=== PATIENT | male | born 1965 ===

== ENCOUNTER 2024-09-06 09:53 | Outpatient (CLI) | payer OTHER, SELFPAY ==
--- NOTE | ~2024-09-06 | US_ITS ---
US abdomen complete EXAMINATION: US Abdomen Complete INDICATION: Iron overload PROCEDURE: Realtime High Resolution abdomen ultrasound. COMPARISON: No prior studies for comparison FINDINGS: There are gallbladder polyps. No definite gallstones, gallbladder wall thickening or perich olecystic fluid. Largest polyp measures 3 mm. Common bile duct measures 4 mm. Liver echotexture within normal limits without focal mass. Pancreas within normal limits. Pancreati c tail is obscured by bowel gas. Spleen is unremarkeable. Renal echotexture is within normal limits bilaterally without hydronephrosis, contour deforming mass or renal stone. Right kidney measures 8 cm . Left kidney measures 9.8 cm. Visualized aspects of the aorta and IVC are within normal limits. Portal vein is patent. No sonograph ic Hancock's sign indicated by the technologist. IMPRESSION: 1: Gallbladder polyps. Reviewed, dictated and finalized at location A. IMPRESSION: 1: Gallbladder polyps.
== END 2024-09-06 09:54 | disposition home or self-care (01) ==
LOC: MICIMG 09:53
PROVIDERS: PCP Internal Medicine Hematology & Oncology; Visit Provider Internal Medicine Hematology & Oncology
DX: E83.19 Other disorders of iron metabolism (principal); K82.4 Cholesterolosis of gallbladder
CPT/HCPCS: 76700

== ENCOUNTER 2024-09-15 09:36 | Outpatient (CLI) | payer OTHER, SELFPAY ==
[2024-09-15 09:52] LABS: Hematocrit 40.6 % (42.0-52.0); Hemoglobin 14.2 g/dL (14.0-18.0); Immature Granulocyte Percent A 0.2 % (0-0.5); Lymphocytes Absolute Auto 2.14 K/mm3 (0.9-3.2); Mean Corpuscular HGB Conc 35.0 g/dl (32-36); Mean Corpuscular Hemoglobin 31.6 pg (26-34); Mean Corpuscular Volume 90.2 fl (80-100); Nucleated Red Blood Cells Absolute Auto 0.000 K/mm3 (0.0-0.012); Nucleated Red Blood Cells Perc 0.0 % (0.0-0.2); Platelet Count Result 256 k/mm3 (150-375); Red Blood Count 4.50 M/mm3 (4.6-6.20); White Blood Count 5.1 K/mm3 (4.5-10.0)
--- OUTSIDE RECORDS SUMMARY | 2024-09-15 09:56 | XMS_ITS | Continuity of Care Document ---
Author Organization [facility] Address [address] [facility] [address] [place] [address] Phone Care Team Providers Care Band Maker Name Role Phone Maurice Betancourt MD, MD Unavailable Unavailable Allergies, Adverse Reactions, Alerts Substance Reaction Status Criticality No Known Allergies Active No Inform ation Medications Medication Instructions Dosage Effective Dates (start - stop) Status Comments ALPRAZOLAM (unknown strength) take 1 tablet by oral route 3 times every day Not Available - Active Procedures Procedure Date EYE EXAM & TREATMENT OFFICE/OUTPATIENT VISIT, EST VISUAL FIELD- EXTENDED OFFICE/OUTPATIENT VISIT, EST GDX Optic Nerve POSTOP FOLLOW-UP VISIT EYE EXAM & TREATMENT OPHTHALMIC BIOMETRY OPHTHALMIC BIOMETRY DILATED EXAM RIGHT EYE DILATED EXAM LEFT EYE PHARMACY 1 EYE POSTOP FOLLOW-UP VISIT Yag PI PrePayment Yag PI PrePayment OFFICE/OUTPATIENT VISIT, NEW SPECIAL EYE EVALUATION Advance Directives Directive Yes / No Effective Date File Name No Information Encounters Encounter Description Practice Location Reason(s) For Visit Diagnoses Date Provider Providers Copied on Encounter [facility], [address] [facility] [address], [place], [place], [id number], [place] tel:[phone] OPH CONSULT CHANTAL HARRIS POAG OU (chief complaint) Primary open-angle glaucoma, bilateral, mild stageAge-relat ed nuclear cataract, bilateralAnato mical narrow angle, bilateralKerat oconjunct sicca, not specified as Sjogren's, left eye 1 Serafin Richards. [address], [address], [place], [place], [id number], [place]. tel:[phone] Referring Provider: Caroline Figueroa MD, [address] [place] [address] [place], [address]. tel:[phone] OFFICE/OUTPA TIENT VISIT, EST [facility], [address] [place] [address], [id number], [place] tel:[phone] OPH CONSULT CHANTAL HARRIS glaucoma (chief complaint) Primary open-angle glaucoma, bilateral, mild stageAnatomica l narrow angle, bilateralAge-r elated nuclear cataract, bilateralKerat oconjunct sicca, not specified as Sjogren's, bilateralOther specified postprocedural statesOther vitreous opacities, bilateral 0 Serafin Richards. [address], [address], [place], [place], [id number], [place]. tel:[phone] Referring Provider: Caroline Figueroa MD, [address] [place] [address] [place], [address]. tel:[phone] OFFICE/OUTPA TIENT VISIT, [facility], [address] [place] [address], [id number], [place] tel:[phone] OPH CONSULT CHANTAL HARRIS IOP check (chief complaint) Other specified postprocedural statesAnatomic al narrow angle, bilateralAge-r elated nuclear cataract, bilateralKerat oconjunct sicca, not specified as Sjogren's, bilateralPrima ry open-angle glaucoma, bilateral, mild stageOther vitreous opacities, bilateral 0 Serafin Richards. [address], [address], [place], [place], [id number], [place]. tel:[phone] Referring Provider: Caroline Figueroa MD, [place], [address]. tel:[phone] [facility], [address] [place] [address], [id number], tel:[phone] OPH CONSULT CHANTAL HARRIS blurry vision (chief complaint) Other specified postprocedural statesAnatomic al narrow angle, bilateral Oct-3 0-201 9 Derheimer OD Marycarmen. [address], [address], [place], [place], [id number], [place]. tel:[phone] Referring Provider: Soy Hernández, [address], [place], [address] . tel:[phone] [facility], [address] [place] [address], [id number], tel:[phone] OPH CONSULT CHANTAL HARRIS lasik evaluation (chief complaint) Age-related nuclear cataract, bilateralSquam ous blepharitis right upper eyelidSquamous blepharitis right lower eyelidSquamous blepharitis left upper eyelidSquamous blepharitis left lower eyelidOther vitreous opacities, bilateral Sep-1 6- 9 Serafin Richards. [address], [address], [place], [place], [id number], [place]. tel:[phone] Referring Provider: Soy Hernández, [address], [place], [address] . tel:[phone] [facility], [address] [place] [address], [id number], [place] tel:[phone] OPH CONSULT CHANTAL HARRIS YAG PI F/U (chief complaint) Anatomical narrow angle, bilateral Jah-3 0-201 9 Derheimer OD Marycarmen. [address], [address], [place], [place], [id number], [place]. tel:[phone] Referring Provider: Marycarmen Kidd OD, [address], [place], [address] . tel:[phone] [facility], [address] [place] [address], [id number], tel:[phone] [address] [place] [address] No Information 9 Mu Olivier. [address], [address], [place], [place], [id number], . tel:[phone] Referring Provider: Soy Hernández, [address], [place], [address] . tel:[phone] [facility], [address] [place] [address], [id number], tel:[phone] OPH CONSULT CHANTAL HARRIS No Information 9 Mu Olivier. [address], [address], [place], [place], [id number], . tel:[phone] Referring Provider: Soy Hernández, [address], [place], [address] . tel:[phone] [facility], [address] [place] [address], [id number], tel:[phone] [address] [place] [address] No Information 9 Mu Olivier. [address], [address], [id number], . tel:[phone] Referring Provider: Soy Hernández, [address], [place], [address] . tel:[phone] [facility], [address] [place] [address], [id number], tel:[phone] OPH CONSULT CHANTAL HARRIS No Information 9 Mu Olivier. [address], [address], [id number], . tel:[phone] Referring Provider: Soy Hernández, [address], [place], [address] . tel:[phone] OFFICE/OUTPA TIENT VISIT, [facility], [address] [place] [address] [place], [place], [id number], [place] tel:[phone] OPH CONSULT CHANTAL HARRIS narow angle eval (chief complaint) Anatomical narrow angle, bilateralDerma tochalasis of left upper eyelidSquamous blepharitis left upper eyelidTear film insufficiency of bilateral lacrimal glands 9 Mu Olivier. [address], [place], [place], [id number], [place]. tel:[phone] Referring Provider: Soy Mu Hernández, [address], [place], [address] . tel:[phone] Family History Family Member Type Diagnosis Age At Onset Problem (finding) No family history of Hy pertension Problem (finding) No family history of Gl aucoma Problem (finding) No family hist ory of Macular degeneration Problem (finding) No family history of Di abetes mellitus Payers Payer name Insurance type Covered libertarian ID Authoriza tion(s) No Information Social History Type Description Quantity Date Captured Comments Alcohol Use Details Caffeine Use Details Unknown Tobacco Use Status Current non-smoker Smoking Status Never smoker Sex Male Chief Complaint And Reason For Visit From encounter dated '07/10/2020 09:45'. POAG OU (chief complaint). Description: The 55 year old male presents for evaluation of POAG OU in the right eye and left eye. It affects VA not affected. The symptom is constant. The condition is stable. Patient presents for V/F. He is S/P LPI OU. He states his VA is good. Eyes are comfortable OU.He is not currently on any glaucoma drops. He does sometimes use systane at times but not to often. Reason For Referral Reason For Referral No Information History Of Present Illness Encounter Date Complaint History Of Prese nt Illness POAG OU The 55 year old male presents for evaluation of POAG OU in the right eye and left eye. It affects VA not affected. The symptom is constant. The condition is stable. Patient presents for V/F. He is S/P LPI OU. He states his VA is good. Eyes are comfortable OU. He is not currently on any glaucoma drops. He does sometimes use systane at times but not to often. glaucoma The 54 year old male presents for evaluation of glaucoma in the right eye and left eye. It started about 6 month(s) ago. The condition is constant. The condition is stable. pt says eyes have been doing well since last exam. pt is not using any gtts except for ATs right now. s/p YAG PI OU IOP check The 54 year old male presents for evaluation of IOP check in the right eye and left eye. It started about 6 month(s) ago. It affects VA not affected. The condition is stable. Pt reports no change, stable since last visit. Ordered OCT ON today. Pt uses ATs PRN blurry vision The 53 year old male presents for evaluation of blurry vision in the right eye and left eye. It started about 2 week(s) ago. It affects distance vision. The symptom is frequent. The condition is moderate. Pt c/o distance VA is not as good as it used to be after LASIK x 2 wks ago. His near vision is really good. Pt is taking Systance every hr OU. Pt denies eye pain/discomfort. lasik evaluation The 53 year old male presents for evaluation of lasik evaluation in the right eye and left eye. It started about 1 year(s) ago. The symptom is constant. The condition is significant. He has glasses but states he doesn't wear them or CL at this time. AT's PRN. YAG PI F/U The 53 year old male presents for evaluation of YAG PI F/U in the right eye and left eye. YAG in OS about 1 week(s) ago. The symptom is constant. The condition is stable. Pt reports any change in VA. He also complains of allergies and thinks that may affect his vision and cause some discomfort but no other complaints. He states that his right eye caused him a little more trouble after surgery but says it was fine the next day. Pt denies any floaters and denies any dryness. Pt is still taking gtts. narow angle eval The 53 year old male presents for narow angle eval in the left > right. It started about 1 year(s) ago. The condition is constant. The condition is significant. Pt has been told that he has narrow angles, and has been given the suggestion to have a PI in OS. PT denies any pain or headaches. Reports blurriness with glasses, and feels like he strains with them. Functional Status Date Functional Assessmen t No Information Instructions Date Instruction Additional Infor radha Impression/Plan Related to Prima ry open-angle glaucoma, bilateral, mild stage Impression/Plan Related to Kerat oconjunct sicca, not specified as Sjogren's, left eye Impression/Plan Related to Anato mical narrow angle, bilateral Impression/Plan Related to Age-r elated nuclear cataract, bilateral Impression/Plan Related to Other vitreous opacities, bilateral Impression/Plan Related to Other specified postprocedural states Impression/Plan Related to Kerat oconjunct sicca, not specified as Sjogren's, bilateral Impression/Plan Related to Age-r elated nuclear cataract, bilateral Impression/Plan Related to Anato mical narrow angle, bilateral Impression/Plan Related to Prima ry open-angle glaucoma, bilateral, mild stage Impression/Plan Related to Anato mical narrow angle, bilateral Impression/Plan Related to Other specified postprocedural states Impression/Plan Related to Kerat oconjunct sicca, not specified as Sjogren's, bilateral Impression/Plan Related to Prima ry open-angle glaucoma, bilateral, mild stage Impression/Plan Related to Other vitreous opacities, bilateral Impression/Plan Related to Age-r elated nuclear cataract, bilateral RTO 3 months for ON OCT and IOP check. Related to Anatomical narrow angle, bilateral Impression/Plan Related to Anato mical narrow angle, bilateral Impression/Plan Related to Other specified postprocedural states Impression/Plan Related to Squam ous blepharitis left lower eyelid Impression/Plan Related to Other vitreous opacities, bilateral Impression/Plan Related to Squam ous blepharitis right upper eyelid Impression/Plan Related to Squam ous blepharitis right lower eyelid Impression/Plan Related to Squam ous blepharitis left upper eyelid Impression/Plan Related to Age-r elated nuclear cataract, bilateral Impression/Plan Related to Anato mical narrow angle, bilateral Impression/Plan Related to Anato mical narrow angle, bilateral Impression/Plan Related to Tear film insufficiency of bilateral lacrimal glands Impression/Plan Related to Squam ous blepharitis left upper eyelid Impression/Plan Related to [place] tochalasis of left upper eyelid Assessments Type Assessment Date assessment Primary open-angle glaucoma, carlyn ateral, mild stage impression Primary open-angle g laucoma, bilateral, mild stage: H40.1131. Bilateral assessment Age-related nuclear cataract, bi lateral impression Age-related nuclear cataract, bi lateral: H25.13. Bilateral assessment Anatomical narrow angle, bilater al impression Anatomical narrow an gle, bilateral: H40.033. S/P LPI OU Bilateral assessment Keratoconjunct sicca, not specif ied as Sjogren's, left eye impression Keratoconjunct sicca , not specified as Sjogren's, left eye: H16.222. Left Patient Care Teams Name Effective Dates (start - stop) Status Members No Information
--- OUTSIDE RECORDS SUMMARY | 2024-09-15 09:56 | XMS_ITS | Clinical Summary ---
Author Organization [facility] Amber curry Demetrius Address [address] [place] [address] Care Team Providers Care Visual Supervisor Name Role Phone Unavailable Primary Care Provider Unavailabl e Allergies No known active allergies Medications ALPRAZolam (XANAX) 1 mg tablet TAKE 1/2 (ONE-HALF) TO 1 TABLET BY MOUTH TWICE DAILY NEEDED FOR STRESS 08/12/2024 Active Active Problems No known active problems Encounters Date Type Department Care Team Description 09/15/2024 Telephone [facility] Oncology and Hematology - [place] [address] [place] [address] Savage Bernard MD labs for appt 09/07/2024 External Device Data STL ABSTRACTION Provider, Abstract 09/07/2024 External Device Data ST[facility] ABSTRACTION Provider, Abstract 09/07/2024 External Device Data STL ABSTRACTION Provider, Abstract 09/06/2024 Orders Only [facility] Oncology and Hematology - [place] [address] [place] [address] Savage Bernard MD 09/02/2024 10:30 AM CDT Office Visit [facility] Oncology and Hematology - [place] [address] [place] [address] Savage Bernard MD Iron overload (Primary Dx) from Last 3 Months Family History Medical History Relation Name Comments No Known Problems Child 1 No Known Problems Child 2 No Known Problems Father Skin Cancer Mother No Known Problems Sister 1 No Known Problems Sister 2 No Known Problems Sister 3 Relation Name Status Comments Child 1 Alive Child 2 Alive Father Mother Alive Sister 1 Alive Sister 2 Alive Sister 3 Alive Social History Tobacco Use Types Packs/Day Years Used Date Smoking Tobacco: Never Smokeless Tobacco: Never Tobacco Cessation:Counseling Given: Not Answered Alcohol Use Standard Drinks/Week Comments Yes 0 (1 standard drink = 0.6 oz pur e alcohol) Socially Sex and Gender Information Value Date Recorded Sex Assigned at Not on file Legal Sex Male 3:01 PM CDT Gender Identity Not on file Sexual Orientation Not on file Last Filed Vital Signs Vital Sign Reading Time Taken Comments Blood Pressure 117/81 09/02/2024 10:40 AM CDT Pulse 67 09/02/2024 10:40 AM CDT Temperature 36.6 C (97.8 F) 09/02/2024 10:40 AM CDT Respiratory Rate 15 09/02/2024 10:4 0 AM CDT Oxygen Saturation 96% 09/02/2024 10: 40 AM CDT Inhaled Oxygen Concentration - - Weight 66.6 kg (146 lb 12.8 oz) 025 10:40 AM CDT Height 180.3 cm (5' 11) 09/02/2024 10: 40 AM CDT Body Mass Index 20.47 09/02/2024 10:40 AM CDT Plan of Treatment Upcoming Encounters Date Type Department Care Team (Late st Contact Info) Description 09/16/2024 4:30 PM CDT Telephone Check Up [facility] Oncology and Hematology [facility] [address] [place] [address] [facility] [address] [place] [address] Savage Bernard MD [address] [facility] [address] [place] [address] Health Maintenance Due Date Last Done Comments DTAP/TDAP/TD VACCINES (1 - Tdap) 1986 HEPATITIS B VACCINES (1 of 3 - 19+ 3-dose series) 01/17 COLORECTAL SCREENING 02/04/2012 Colorectal Cancer Screening 02/04/2012 FIT-DNA Q 3 years 02/04/2012 FIT/FOBT Q 1 year 02/04/2012 Flex Sig/CT Colonography Q 5 years 02/04/2012 ZOSTER VACCINE (1 of 2) 2017 Preventative Visit- Commercial 02/18/2024 INFLUENZA VACCINE (#1) 2024 Procedures Procedure Name Priority Date/Time Associated Diagnosis Comments US ABDOMEN COMPLETE Routine 09/06/2024 1:36 PM CDT from Last 3 Months Results * US ABDOMEN COMPLETE (09/06/2024 1:36 PM CDT) Anatomical Region Laterality Modality Abdomen Ultrasound us Savage Bernard MD US ORDERABLES Final Result from Last 3 Months Insurance [facility] GARCIA V[address]QUEZ [address] OPEN ACCESS HMO
--- OUTSIDE RECORDS SUMMARY | 2024-09-15 09:56 | XMS_ITS | Encounter Summary ---
Author Organization [facility] [employer] [facility] Address [address] [place] [address] Care Team Providers Care Veneer Sawyer Name Role Phone Unavailable Primary Care Provider Unavailabl e Reason for Visit * Reason Onset Date Comments labs for appt 09/15/2024 Encounter Details Date Type Department Care Team (Late Contact Info) Description 09/15/2024 Telephone [facility] Oncology and Hematology - [place] [address] [place] [address] [place] [address] [place] [address] [address] [place] [address] labs for appt Social History Tobacco Use Types Packs/Day Years Used Date Smoking Tobacco: Never Smokeless Tobacco: Never Alcohol Use Standard Drinks/Week Comments Yes 0 (1 standard drink = 0.6 oz pur e alcohol) Socially Sex and Gender Information Value Date Recorded Sex Assigned at Not on file Legal Sex Male 3:01 PM CDT Gender Identity Not on file Sexual Orientation Not on file documented as of this encounter Miscellaneous Notes * Telephone Encounter - Rimma Callahan - 09/15/2024 9:02 AM CDT LVM for patient to give the office a call back regarding his labs for his appointment tomorrow. documented in this encounter Plan of Treatment Upcoming Encounters Date Type Department Care Team (Late Contact Info) Description 09/16/2024 4:30 PM CDT Telephone Check Up [facility] Oncology and Hematology [facility] [address] [place] [address] Savage Bernard MD [facility] [address] [place] [address] documented as of this encounter Visit Diagnoses Not on filedocumented in this encounter
[2024-09-15 11:03] LABS: Alanine Aminotransferase 19 U/L (6-50); Albumin Level 4.2 g/dL (3.5-5.1); Alkaline Phosphatase 68 U/L (38-126); Anion Gap 7 mmol/L (4-12); Aspartate Amino Transferase 26 U/L (17-59); Bilirubin,Total 0.5 mg/dL (0.2-1.3); Blood Urea Nitrogen 16 mg/dL (9-20); Calcium 9.0 mg/dL (8.4-10.2); Carbon Dioxide 25 mmol/L (22-30); Chloride 105 mmol/L (98-107); Estimated Glomerular Filt Rate > 60; Glucose 142 mg/dL (65-110); Potassium 3.8 mmol/L (3.4-5.0); Sodium 137 mmol/L (137-145); Total Protein 7.2 g/dL (6.3-8.2)
[2024-09-15 11:10] LABS: Iron 113 ug/dL (49-181)
[2024-09-15 11:26] LABS: Percent Iron Saturation 53 % (20-50)
== END 2024-09-15 09:37 | disposition home or self-care (01) ==
LOC: ANHLAB 09:36
PROVIDERS: PCP Internal Medicine Hematology & Oncology; Visit Provider Internal Medicine Hematology & Oncology
DX: E83.19 Other disorders of iron metabolism (principal)
CPT/HCPCS: 36415; 80053; 81256; 83540; 83550; 85025